=== PATIENT | male | born 1995 | race Caucasian/White ===

== ENCOUNTER 2017-01-27 14:58 | Inpatient (IN) | payer BC, OTHER ==
[~2017-01-27] VITALS: Ht 177.8 cm; Wt 70.3 kg
[2017-01-27] MEDS ORDERED: HYDROXYZINE PAMOATE 25 MG CAPSULE PO PRN (21:15)
[2017-01-27] MEDS ORDERED: ONDANSETRON 4 MG/2 ML VIAL IM PRN (21:15)
[2017-01-27] MEDS ORDERED: ACETAMINOPHEN 325 MG TABLET PO PRN (21:15)
[2017-01-27] MEDS ORDERED: MAG HYDROX/AL HYDROX/SIMETH 30 ML LIQUID UDC PO PRN (21:15)
[2017-01-27] MEDS ORDERED: ONDANSETRON ODT 4 MG TAB.RAPDIS SL PRN (21:15)
[2017-01-27] MEDS ORDERED: BUPRENORPHINE HCL 2 MG TAB.SUBL SL PRN (21:15)
[2017-01-27] MEDS ORDERED: MAGNESIUM HYDROXIDE 30 ML LIQUID UDC PO PRN (21:15)
[2017-01-27] MEDS ORDERED: LORAZEPAM 1 MG TABLET PO PRN (21:15)
[2017-01-27] MEDS ORDERED: LOPERAMIDE HCL 2 MG CAPSULE PO PRN ×2 (21:15)
[2017-01-27] MEDS ORDERED: DICYCLOMINE HCL 20 MG TABLET PO PRN (21:15)
[2017-01-27] MEDS ORDERED: PROMETHAZINE HCL 25 MG TABLET PO PRN (21:15)
[2017-01-27] MEDS ORDERED: MIRALAX 17 GM POWD.PACK PO PRN (21:15)
[2017-01-27] MEDS ORDERED: CLONIDINE HCL 0.1 MG TABLET PO PRN (21:15)
--- NOTE | 2017-01-27 21:40 | NUR ---
Pre admission note Pt seen in intake office. Pt appears mildly intoxicated but in stable condition. V/S WNL. Policies on medication disposal explained to and understood by patient. Will admit to unit.
--- NOTE | 2017-01-27 21:50 | NUR ---
Admission note Pt is a 21 yo male, A+Ox4, presenting to [facility] for Opiate dependence. Pt has Allergies to PCN and Codeine. Pt is on Full Code status, and on Regular diet. Pt is 5'10" in height and 155 LBS in weight. Pt has medical HX of Spinal fusion T11-L1, and multiple occurrences of broken bilateral wrists. Pt has family HX of Breast cancer from mother(), and Substance and alcohol abuse from Father and Brother. Pt has no primary care provider. Pt has been smoking Heroin for 3 years (6 months currently), has reached a level of 2gm-3gm/daily, and last dose was 1gm on 01-27-17 @1200. Pt has been using cocaine intranasal for 9 years (6 months currently), has reached a level of 0.5gm 3x/week, and last dose was "2 lines" on 01-26-17. Pt is not taking any home medications. Pt has HX of previous Detox/Rehab @ [facility] in [place] from November 2015- June 2016. This was the patients last time sober. Pt has been a cigarette smoker for 9 years and has reached a level of 20/daily. Pt appears mildly intoxicated upon admission but in stable condition. V/S WNL. No s/s of distress noted a this time. Respirations even and unlabored. Will continue to monitor.
[2017-01-27] MEDS: METHOCARBAMOL 750 MG TABLET PO PRN (23:56)
--- NOTE | 2017-01-27 23:56 | NUR ---
PRN Clonidine and Robaxin Pt c/o back pain 7/10 and anxiety. PRN Robaxin and Clonidine given and tolerated well. Will reassess within 1 HR. Will continue to monitor.
[2017-01-28 00:01] VITALS: BP 111/67
[2017-01-28] MEDS ORDERED: METHOCARBAMOL 750 MG TABLET ONE (00:04)
[2017-01-28] MEDS ORDERED: CLONIDINE HCL 0.1 MG TABLET ONE (00:05)
--- NOTE | 2017-01-28 00:45 | NUR ---
PRN Clonidine and Robaxin Reassessment Medications effective. Pt expresses reduction in pain to 3/10 and reduction in anxiety. No s/s of ASE/distress noted at this time. Respirations even and unlabored. Will continue to monitor.
[2017-01-28 01:11] LABS: BASOPHILS # (AUTO) 0.1 K/uL (0.0-8.0); BASOPHILS % (AUTO) 1.2 % (0.0-2.0); EOSINOPHILS # (AUTO) 0.3 K/uL (0.0-0.7); EOSINOPHILS % (AUTO) 2.4 % (0.0-7.0); HEMOGLOBIN 16.3 g/dL (12.5-16.3); LYMPHOCYTES # (AUTO) 4.4 K/uL (20.0-40.0); LYMPHOCYTES % (AUTO) 39.9 % (20.5-51.5); MEAN CORPUSCULAR HEMOGLOBIN 32.3 uug (23.8-33.4); MEAN CORPUSCULAR HGB CONC 36 g/dL (32.5-36.3); MEAN CORPUSCULAR VOLUME 90.9 fL (73.0-96.2); MONOCYTES # (AUTO) 0.8 K/uL (2.0-10.0); MONOCYTES % (AUTO) 6.9 % (0.0-11.0); NEUTROPHILS # (AUTO) 5.5 K/uL (1.8-8.9); NEUTROPHILS % (AUTO) 49.6 % (38.5-71.5); PLATELET COUNT (AUTO) 292 K/uL (152-348); RED BLOOD CELL COUNT(AUTO) 5.05 MIL/uL (4.06-5.63); WHITE BLOOD COUNT (AUTO) 11.1 K/uL (3.6-10.2)
[2017-01-28 01:25] LABS: HEMATOCRIT 45.9 % (36.7-47.1)
[2017-01-28 01:32] LABS: ETHANOL < 3 MG/DL (0-0)
[2017-01-28 01:35] LABS: ALANINE AMINOTRANSFERASE 19 U/L (16-63); ALKALINE PHOSPHATASE 67 U/L (50-136); ASPARTATE AMINOTRANSFERASE 15 U/L (15-37); BILIRUBIN,TOTAL 0.3 mg/dL (0.2-1.0); CARBON DIOXIDE 27 mmol/L (21-32); CHLORIDE 105 mmol/L (98-107); CREATININE 0.9 mg/dL (0.6-1.3); GLUCOSE 107 mg/dL (74-106); MAGNESIUM 1.9 mg/dL (1.8-2.4); POTASSIUM 3.7 mmol/L (3.5-5.1); TOTAL PROTEIN, SERUM 7.5 g/dL (6.4-8.2); UREA NITROGEN, BLOOD 11 mg/dL (7-18)
[2017-01-28 04:15] VITALS: BP 116/71
--- NOTE | 2017-01-28 06:54 | NUR ---
End of shift note Pt is a 21 yo male, A+Ox4, presenting to [facility] for Opiate dependence. Pt has Allergies to PCN and Codeine. Pt is on Full Code status, and on Regular diet. Pt has medical HX of Spinal fusion T11-L1, and multiple occurrences of broken bilateral wrists. Pt is on Fall precautions. Pt is on 5 day Subutex taper to start today. Pt was given PRN Clonidine and Robaxin @2356. Pt slept for a total of 5 HRS. Last COWS: 3 @0400. No s/s of distress noted at this time. Respirations even and unlabored. Will endorse to day shift nurse.
[2017-01-28 08:00] VITALS: BP 115/78
--- NOTE | 2017-01-28 08:00 | NUR ---
START OF SHIFT NOTE 21 year old male admitted last night for Opiate detox for heroin and cocaine use. History of detox and rehab from 11/2015 to 06/2016. . On 5 day Subutex taper. Allergy to PCN and Codiene. Skin intact. History of Spinal fusion T11-L1, multiple bilateral wrist fractures. On Fall precautions. Pharmacy called and asked if pt had allergy to Subutex as pt has allergy to codeine. Pt states he has had Suboxone with no reaction. Pharmacy notified pt report of no reaction to Suboxone. 0720, received report from night RN. Last COW 3. Received prn Robaxin and Clonidine last night. Slept 5 hours. Pt to receive TB skin test this am. 0750, pt requesting to smoke. Vitals stable. States back pain. Will medicate with PRN medication for pain as ordered. Bed in low position, side rails up x 2, call velez within reach. Will continue to monitor.
[2017-01-28] MEDS: METHOCARBAMOL 750 MG TABLET PO PRN ×2 (08:56→21:02)
[2017-01-28] MEDS: IBUPROFEN 600 MG TABLET PO PRN ×2 (08:57→21:02)
[2017-01-28] MEDS: BUPRENORPHINE HCL 2 MG TAB.SUBL SL SCH ×4 (08:57→20:47)
--- NOTE | 2017-01-28 08:57 | NUR ---
PRN MEDICATION ADMINISTRATION Pt reports back pain 7/10 in area of back where he had a T11-L1 fusion. Given Motrin and Robaxin. Will reassess for effectiveness.
[2017-01-28] MEDS ORDERED: TUBERCULIN,PURIF.PROT.DERIV. 5 TU/0.1 ML TEST ID ONE (09:00)
--- NOTE | 2017-01-28 09:57 | NUR ---
PRN MEDICATION REASSESSMENT Pt reports back pain decreased to 4/10.
[2017-01-28 11:12] LABS: *AMPHETAMINE, URINE NEGATIVE (NEGATIVE); *BARBITURATE, URINE NEGATIVE (NEGATIVE); *CANNABINOID, URINE POSITIVE (NEGATIVE); *COCCAINE, URINE POSITIVE (NEGATIVE); *OPIATE, URINE POSITIVE (NEGATIVE); *PHENCYCLIDINE SCREEN,URINE NEGATIVE (NEGATIVE)
[2017-01-28] MEDS ORDERED: KETOROLAC TROMETHAMINE 30 MG INJ IM PRN (11:30)
[2017-01-28 12:00] VITALS: BP 101/55
[2017-01-28] MEDS ORDERED: GABAPENTIN 300 MG CAPSULE PO ONE (13:00)
[2017-01-28] MEDS: LIDOCAINE 5% PATCH TD SCH (13:17)
--- NOTE | 2017-01-28 15:02 | NUR ---
Therapist prompted client about group times. Client stated he will start attending groups tomorrow if he is feeling better.
[2017-01-28 17:00] VITALS: BP 98/54
--- NOTE | 2017-01-28 19:19 | NUR ---
END OF SHIFT NOTE 21 year old male admitted last night for Opiate detox for heroin and cocaine use. History of detox and rehab from 11/2015 to 06/2016. . On 5 day Subutex taper. Allergy to PCN and Codiene. Skin intact. History of Spinal fusion T11-L1, multiple bilateral wrist fractures. On Fall precautions. Pharmacy called and asked if pt had allergy to Subutex as pt has allergy to codeine. Pt states he has had Suboxone with no reaction. Pharmacy notified pt report of no reaction to Suboxone. At 0857 given motrin and robaxin for back pain. 0957, pt reported decrease in back pain. TB skin test administered. Last COWS 5 at 0800, 1200 and at 1600. Eating 100 percent of meals. Fluid intake 2538 ml. Void x 23, stool x 1. Report given to night RN. Bed in low position and locked, side rails up x 2, call velez within reach.
--- NOTE | 2017-01-28 19:20 | NUR ---
End of shift note Received report from day shift nurse. Pt is a 21 yo male, A+Ox4, presenting to [facility] for Opiate dependence. Pt has Allergies to PCN and Codeine. Pt is on Full Code status, and on Regular diet. Pt has medical HX of Spinal fusion T11-L1, and multiple occurrences of broken bilateral wrists. Pt is on Fall precautions. Pt is on 5 day Subutex taper, tolerated well. No s/s of distress noted at this time. Respirations even and unlabored. Will continue to monitor. Addendum: 01/28/17 at 2310 by DAYSI TAVERAS LVN Error
--- NOTE | 2017-01-28 19:21 | NUR ---
Start of shift note Received report from day shift nurse. Pt is a 21 yo male, A+Ox4, presenting to [facility] for Opiate dependence. Pt has Allergies to PCN and Codeine. Pt is on Full Code status, and on Regular diet. Pt has medical HX of Spinal fusion T11-L1, and multiple occurrences of broken bilateral wrists. Pt is on Fall precautions. Pt is on 5 day Subutex taper, tolerated well. No s/s of distress noted at this time. Respirations even and unlabored. Will continue to monitor.
[2017-01-28 20:16] VITALS: BP 130/83
[2017-01-28] MEDS: GABAPENTIN 300 MG CAPSULE PO SCH (20:46)
--- NOTE | 2017-01-28 21:02 | NUR ---
PRN Motrin and Robaxin Pt c/o back pain 10/26 and requested for PRN Motrin and Robaxin. Medications given and tolerated well. Will reassess within 1 HR. Will continue to monitor.
--- NOTE | 2017-01-28 22:00 | NUR ---
PRN Motrin and Robaxin Reassessment Medications effective patient expresses reduction in pain to 4/10. No s/s of ASE/distress noted at this time. Respirations even and unlabored. Will continue to monitor.
[2017-01-28] MEDS: diphenhydrAMINE 50 MG CAPSULE PO PRN (23:27)
--- NOTE | 2017-01-28 23:37 | NUR ---
PRN Benadryl Pt c/o inability to sleep and requested for PRN Benadryl. Medication given and tolerated well. Will reassess within 1 HR. Will continue to monitor.
[2017-01-29 00:16] VITALS: BP 124/79
--- NOTE | 2017-01-29 00:37 | NUR ---
PRN Benadryl Reassessment Medication effective. Pt is resting well in bed. No s/s of ASE/distress noted at this time. Respirations even and unlabored. Will continue to monitor.
[2017-01-29 04:30] VITALS: BP 121/83
[2017-01-29 06:06] LABS: HEPATITIS B SURFACE AG Negative (Negative)
--- NOTE | 2017-01-29 07:00 | NUR ---
End of shift note Pt is a 21 yo male, A+Ox4, presenting to [facility] for Opiate dependence. Pt has Allergies to PCN and Codeine. Pt is on Full Code status, and on Regular diet. Pt has medical HX of Spinal fusion T11-L1, and multiple occurrences of broken bilateral wrists. Pt is on Fall precautions. Pt is on 5 day Subutex taper to start today. Pt was given PRN Motrin and Robaxin @2102 and PRN Benadryl @2337. Pt slept for a total of 6 HRS. Last COWS: 3 @0400. No s/s of distress noted at this time. Respirations even and unlabored. Will endorse to day shift nurse.
[2017-01-29 08:00] VITALS: BP 108/63
--- NOTE | 2017-01-29 08:00 | NUR ---
START OF SHIFT NOTE 21 year old male admitted for Opiate detox for heroin. Also history of cocaine use. History of detox and rehab from 11/2015 to 06/2016. . On 5 day Subutex taper. Allergy to PCN and Codeine. Skin intact. History of Spinal fusion T11-L1, multiple bilateral wrist fractures. On Fall precautions. Received report from night RN. Received Motrin, Robaxin, Benadryl PRN during the night. Slept 6 hours. Last COWS 5. On 0800 patient rounds, pt alert and oriented. Bed in low position and locked, side rails up x 2, call velez within reach. Will continue to monitor.
[2017-01-29] MEDS: LIDOCAINE 5% PATCH TD SCH (09:50)
[2017-01-29] MEDS: BUPRENORPHINE HCL 2 MG TAB.SUBL SL SCH ×3 (09:50→20:52)
[2017-01-29] MEDS: GABAPENTIN 300 MG CAPSULE PO SCH ×3 (09:51→20:52)
[2017-01-29] MEDS: IBUPROFEN 600 MG TABLET PO PRN (11:10)
[2017-01-29] MEDS: METHOCARBAMOL 750 MG TABLET PO PRN ×2 (11:10→23:40)
--- NOTE | 2017-01-29 11:10 | NUR ---
PRN MEDICATION ADMINISTRATION Pt reports back pain 10/26. Given Motrin and Robaxin. Will reassess.
--- NOTE | 2017-01-29 12:10 | NUR ---
PRN MEDICATION REASSESSMENT Pt reports decrease in back pain to 4/10 after Motrin and Robaxin.
[2017-01-29 12:30] VITALS: BP 115/70
--- NOTE | 2017-01-29 14:00 | NUR ---
Therapist prompted client to attend group today and process his feelings with others rather than isolating in his room. Client agreed to attend group.
[2017-01-29] MEDS: BACLOFEN 10 MG TABLET PO SCH ×2 (14:13→20:52)
[2017-01-29] MEDS ORDERED: NAPROXEN 500 MG TABLET PO ONE (15:00)
[2017-01-29 16:30] VITALS: BP 104/55
--- NOTE | 2017-01-29 18:56 | NUR ---
END OF SHIFT NOTE 21 year old male admitted for Opiate detox for heroin. Also history of cocaine use. History of detox and rehab from 11/2015 to 06/2016. . On 5 day Subutex taper. Allergy to PCN and Codeine. Skin intact. History of Spinal fusion T11-L1, multiple bilateral wrist fractures. On Fall precautions. Given Motrin and Robaxin at 1110 for back pain with pt reported decrease in pain level one hour later. Tolerating Subutex taper with COWS 3 at 0800,; 4 at 1200; 2 at 1700. Eating 100 percent of all meals, intake 1800 ml, void x 3. Report given to night RN. Bed in low position and locked, side rails up x 2, call light within reach. Will continue to monitor.
--- NOTE | 2017-01-29 19:10 | NUR ---
Start of shift note Received report from day shift nurse. Pt is a 21 yo male, A+Ox4, presenting to [facility] for Opiate dependence. Pt has Allergies to PCN and Codeine. Pt is on Full Code status, and on Regular diet. Pt has medical HX of Spinal fusion T11-L1, and multiple occurrences of broken bilateral wrists. Pt is on Fall precautions. Pt is on 5 day Subutex taper, tolerated well. No s/s of distress noted at this time. Respirations even and unlabored. Will continue to monitor.
[2017-01-29 20:11] VITALS: BP 136/82
[2017-01-29] MEDS: NAPROXEN 500 MG TABLET PO SCH (20:51)
--- NOTE | 2017-01-29 20:54 | NUR ---
PRN Toradol Pt c/o lower back pain 11/26 and requested for PRN Toradol. Medication given and tolerated well. Will reassess within 1 HR. Will continue to monitor.
--- NOTE | 2017-01-29 21:50 | NUR ---
PRN Toradol Reassessment Medication effective. Pt's pain reduced to 5/10. No s/s of ASE/distress noted at this time. Respirations even and unlabored. Will continue to monitor.
[2017-01-29] MEDS: diphenhydrAMINE 50 MG CAPSULE PO PRN (23:40)
--- NOTE | 2017-01-29 23:40 | NUR ---
PRN Robaxin and Benadryl Pt c/o muscle spasms and inability to sleep and requested for PRN Robaxin and Benadryl. Medications given and tolerated well. Will reassess within 1 HR. Will continue to monitor.
[2017-01-30 00:18] VITALS: BP 128/81
--- NOTE | 2017-01-30 00:35 | NUR ---
PRN Robaxin and Benadryl Reassessment Medications effective. Pt is resting well in bed. No s/s of ASE/distress noted at this time. Respirations even and unlabored. Will continue to monitor.
[2017-01-30 04:21] VITALS: BP 124/77
--- NOTE | 2017-01-30 07:00 | NUR ---
End of shift note Pt is a 21 yo male, A+Ox4, presenting to [facility] for Opiate dependence. Pt has Allergies to PCN and Codeine. Pt is on Full Code status, and on Regular diet. Pt has medical HX of Spinal fusion T11-L1, and multiple occurrences of broken bilateral wrists. Pt is on Fall precautions. Pt is on 5 day Subutex taper to start today. Pt was given PRN Toradol @2053 and PRN Robaxin and Benadryl @2339. Pt slept for a total of 5 HRS. Last COWS: 3 @0400. No s/s of distress noted at this time. Respirations even and unlabored. Will endorse to day shift nurse.
--- NOTE | 2017-01-30 07:10 | NUR ---
Start of shift note SBAR report rcv'd. Pt was admitted for opiate dependence and cocaine abuse. Pt has an allergy to PCN and codeine. Pt is a full code and on a regular diet. Pt has a PMHx of a spinal fusion with chronic pain and multiple bruises to bilateral wrists. Pt is on day 3 of a 5 day subutex taper. Pt is currently resting in bed. Pt has no complaints at this time. Will continue to monitor pt.
[2017-01-30 08:00] VITALS: BP 118/73
[2017-01-30] MEDS: LIDOCAINE 5% PATCH TD SCH (08:45)
[2017-01-30] MEDS: BACLOFEN 10 MG TABLET PO SCH (08:45)
[2017-01-30] MEDS: FAMOTIDINE 20 MG TABLET PO SCH (08:45)
[2017-01-30] MEDS: GABAPENTIN 300 MG CAPSULE PO SCH (08:45)
[2017-01-30] MEDS: NAPROXEN 500 MG TABLET PO SCH ×2 (08:45→20:43)
[2017-01-30] MEDS ORDERED: BUPRENORPHINE HCL 2 MG TAB.SUBL SL SCH ×2 (09:00→15:00)
[2017-01-30 12:00] VITALS: BP 127/73
[2017-01-30] MEDS: BUPRENORPHINE HCL 2 MG TAB.SUBL SL SCH ×3 (12:08→20:44)
--- NOTE | 2017-01-30 12:45 | NUR ---
therapist prompted client to attend today's groups. Client agreed to attend.
[2017-01-30] MEDS: ACETAMINOPHEN 325 MG TABLET PO SCH ×2 (14:43→20:44)
[2017-01-30] MEDS: GABAPENTIN 400 MG CAPSULE PO SCH ×2 (14:43→20:43)
[2017-01-30] MEDS: BACLOFEN 20 MG TABLET PO SCH ×2 (14:44→20:43)
[2017-01-30 16:00] VITALS: BP 123/77
--- NOTE | 2017-01-30 18:52 | NUR ---
End of shift note Pt was admitted for opiate dependence and cocaine abuse. Pt is a full code and on a regular diet. Pt has an allergy to PCN and codeine. Pt has a PMHx of a spinal fusion with chronic pain and multiple bruises to bilateral wrists. Pt is on day 3 of a 5 day subutex taper, and during the shift Dr Padilla adjusted the taper d/t his s/s of withdrawal. Pt was started on baclofen and Tylenol to manage his chronic pain and states that he is comfortable. Pt has no complaints at this time. Pt had a COWS of 5 at 1600. All needs addressed at this time. Will endorse SBAR to oncoming nurse.
[2017-01-30 20:00] VITALS: BP 141/85
--- NOTE | 2017-01-30 20:00 | NUR ---
Start of Shift Pt is a 21 year old male admitted for Opiate dependence, placed on 5 day Subutex taper. Pt reported using Heroin 2-3g/daily and Cocaine 0.5g 3x/weekly. Pt is allergic to PCN and Codeine, fall precautions, regular diet and full code. PMH: Spinal fusions with multiple bilateral wrist fx. Upon assessment, pt presents with anxiety, reports muscle aches, lower back pain, tremors felt upon touch, skin is clammy/flushed, respirations even/unlabored, denies SOB/chest pain, denies n/v/d, medications due. Safety measures in place, call light within reach, side rails up x2, bed locked and in low position. Will continue to monitor.
[2017-01-30] MEDS: CLONIDINE HCL 0.1 MG TABLET PO SCH (20:44)
[2017-01-30] MEDS: diphenhydrAMINE 50 MG CAPSULE PO PRN (22:59)
--- NOTE | 2017-01-30 22:59 | NUR ---
PRN Administration Pt requests aid for sleep. Benadryl 50mg PRN administered. Safety measures in place. Will continue to monitor.
--- NOTE | 2017-01-30 23:59 | NUR ---
PRN Reassessment Upon reassessment, pt is in bed within eyes closed, respirations even/unlabored. Safety measures in place. Will continue to monitor.
[2017-01-31] VITALS (7 sets, daily range): BP systolic 100–127; BP diastolic 62–87
[2017-01-31] MEDS: METHOCARBAMOL 750 MG TABLET PO PRN (01:15)
--- NOTE | 2017-01-31 01:15 | NUR ---
PRN Administration Pt reports muscle/body aches rated 5-6/10. Robaxin 750mg PRN administered. Safety measures in place. Will continue to monitor.
--- NOTE | 2017-01-31 02:15 | NUR ---
PRN Reassessment Upon reassessment of Robaxin, pt is in bed, resting with eyes closed, respirations even/unlabored. Safety measures in place. Will continue to monitor.
--- NOTE | 2017-01-31 04:00 | NUR ---
Vital Signs/COWS deferred BP 125/87, pulse 79, resp 16, Spo2 99% room air, temp 97.9, no pain COWS deferred due to pt sleeping, to assess while pt is awake as ordered. Safety measures in place. Will continue to monitor.
--- NOTE | 2017-01-31 07:00 | NUR ---
End of Shift Pt is a 21 year old male admitted for Opiate dependence, placed on 5 day Subutex taper. Pt reported using Heroin 2-3g/daily and Cocaine 0.5g 3x/weekly. Pt is allergic to PCN and Codeine, fall precautions, regular diet and full code. PMH: Spinal fusions with multiple bilateral wrist fx. During shift, pt presented with anxiety, reports muscle aches, lower back pain, tremors felt upon touch, skin is clammy/flushed scheduled taper medications administered, COWS 5. Benadryl 50mg PRN administered for sleep, effective. Robaxin 750mg PRN administered for muscle aches. Pt slept for 5 hours, intake of 855ml PO, voids x3 and stool x0. Safety measures in place, call light within reach, side rails up x2, bed locked and in low position. Endorsed to day shift nurse.
--- NOTE | 2017-01-31 07:10 | NUR ---
Start of shift note SBAR report rcvd'. Pt was admitted for opiate dependence and cocaine abuse. Pt has an allergy to PCN and codeine. Pt is a full code and on a regular diet. Pt has a PMHx of a spinal fusion with chronic pain and multiple bruises to bilateral wrists. Pt is on day 4 of a custom subutex taper. Pt is currently sleeping in bed, pt has no complaints at this time. Will continue to monitor pt. All needs addressed.
[2017-01-31] MEDS: CLONIDINE HCL 0.1 MG TABLET PO SCH ×3 (09:00→20:49)
--- NOTE | 2017-01-31 09:00 | NUR ---
Clonidine held Pt clonidine held per MD order for BP of 100/62 after recheck, initial BP of 95/47. Will continue to monitor pt.
[2017-01-31] MEDS: NAPROXEN 500 MG TABLET PO SCH ×2 (09:13→20:49)
[2017-01-31] MEDS: ACETAMINOPHEN 325 MG TABLET PO SCH (09:13)
[2017-01-31] MEDS: LIDOCAINE 5% PATCH TD SCH (09:13)
[2017-01-31] MEDS: BACLOFEN 20 MG TABLET PO SCH ×4 (09:13→20:49)
[2017-01-31] MEDS: BUPRENORPHINE HCL 2 MG TAB.SUBL SL SCH ×3 (09:13→20:54)
[2017-01-31] MEDS: FAMOTIDINE 20 MG TABLET PO SCH (09:13)
[2017-01-31] MEDS: GABAPENTIN 400 MG CAPSULE PO SCH (09:13)
--- NOTE | 2017-01-31 12:00 | NUR ---
MD communication Pt report pain level of 12/27. Notified Dr Padilla, Dr Padilla to place orders. Aware that pt had last dose of naproxen at 0915.
[2017-01-31] MEDS ORDERED: KETOROLAC TROMETHAMINE 60 MG INJ IM ONE (12:15)
--- NOTE | 2017-01-31 13:11 | NUR ---
Reassessment Pt states that his pain level is 4/10 and that he is comfortable and that the toradol injection was effective .
[2017-01-31] MEDS: GABAPENTIN 300 MG CAPSULE PO SCH ×2 (14:05→20:49)
[2017-01-31] MEDS: ACETAMINOPHEN ES 500 MG TABLET PO SCH ×2 (14:05→20:48)
--- NOTE | 2017-01-31 19:03 | NUR ---
End of shift note Pt was admitted for opiate dependence and cocaine abuse. Pt has an allergy to PCN and codeine. Pt is a full code and on a regular diet. Pt has a PMHx of a spinal fusion with chronic pain and multiple bruises to bilateral wrists. Pt is on day 4 of a custom subutex taper and tolerating well. Pt had an episode of extreme pain and had a one time order of toradol IM and Dr Padilla had to increase his baclofen to QID instead of TID. Pt states that the medication was effective. Pt took a sufficient nap after administration of the medication and states that he is feeling better at this time. Pt had a COWS of 6 at 1600. Will endorse SBAR to oncoming nurse.
--- NOTE | 2017-01-31 20:00 | NUR ---
Start of Shift Pt is a 21 year old male admitted for Opiate dependence, placed Subutex taper. Pt reported using Heroin 2-3g/daily and Cocaine 0.5g 3x/weekly. Pt is allergic to PCN and Codeine, fall precautions, regular diet and full code. PMH: Spinal fusions with multiple bilateral wrist fx. Upon assessment, pt reports feeling fatigue, muscle aches with lower back pain, skin is clammy/flushed, respirations even/unlabored, denies SOB/chest pain, denies n/v/d, medications due. Safety measures in place, call light within reach, side rails up x2, bed locked and in low position. Will continue to monitor.
[2017-02-01] VITALS: BP 113/82
--- NOTE | 2017-02-01 | NUR ---
Vital Signs/COWS deferred BP 113/82, pulse 70, resp 17, Spo2 99% room air, temp 98, no pain COWS deferred due to pt sleeping, to assess while pt is awake as ordered. Safety measures in place. Will continue to monitor.
[2017-02-01 04:00] VITALS: BP 124/81
--- NOTE | 2017-02-01 04:00 | NUR ---
Vital Signs/COWS deferred BP 124/81, pulse 66, resp 17, Spo2 100% room air, temp 97.9, no pain COWS deferred due to pt sleeping, to assess while pt is awake as ordered. Safety measures in place. Will continue to monitor.
--- NOTE | 2017-02-01 07:00 | NUR ---
End of Shift Pt is a 21 year old male admitted for Opiate dependence, placed on 5 day Subutex taper. Pt reported using Heroin 2-3g/daily and Cocaine 0.5g 3x/weekly. Pt is allergic to PCN and Codeine, fall precautions, regular diet and full code. PMH: Spinal fusions with multiple bilateral wrist fx. During shift, pt reported feeling fatigue, muscle aches with lower back pain, skin is clammy/flushed scheduled taper medications administered, effective in management of s/s of withdrawal as reported by pt, COWS 5. No PRN medications administered. Pt slept for 6 hours, intake of 1800 ml PO, voids x4 and stool x0. Pt is scheduled for discharge today.Safety measures in place, call light within reach, side rails up x2, bed locked and in low position. Endorsed to day shift nurse.
--- NOTE | 2017-02-01 07:37 | NUR ---
START OF SHIFT Received report from night nurse. 21 year old male patient admitted on 01/27/17 for Heroine and Codeine withdrawals. Pt is placed on a 5 day Subutex taper and is tolerating well. Most recent COWS is 5. No PRN medications needed or administered at night. V/S remain WNL throughout shift. Pt slept for 6 hours. Pt remains compliant with ordered medications. All needs met at this time. Will continue to monitor.
[2017-02-01 08:09] VITALS: BP 114/66
[2017-02-01] MEDS ORDERED: BUPRENORPHINE HCL 2 MG TAB.SUBL SL SCH (09:00)
[2017-02-01] MEDS: GABAPENTIN 300 MG CAPSULE PO SCH (09:14)
[2017-02-01] MEDS: CLONIDINE HCL 0.1 MG TABLET PO SCH ×3 (09:14→21:37)
[2017-02-01] MEDS: NAPROXEN 500 MG TABLET PO SCH ×2 (09:14→20:28)
[2017-02-01] MEDS: ACETAMINOPHEN ES 500 MG TABLET PO SCH ×3 (09:15→20:27)
[2017-02-01] MEDS: LIDOCAINE 5% PATCH TD SCH (09:15)
[2017-02-01] MEDS: BACLOFEN 20 MG TABLET PO SCH ×4 (09:15→20:28)
[2017-02-01] MEDS: FAMOTIDINE 20 MG TABLET PO SCH (09:15)
[2017-02-01] MEDS ORDERED: KETOROLAC TROMETHAMINE 30 MG INJ IM PRN (11:30)
[2017-02-01 12:25] VITALS: BP 114/74
[2017-02-01] MEDS: KETOROLAC TROMETHAMINE 30 MG INJ IM PRN (12:43)
--- NOTE | 2017-02-01 12:43 | NUR ---
PRN TORADOL Pt c/o 11/26 upper/medial/lower back pain that he describes as aching and sharp. PRN Toradol 60mg administered as ordered. Will reassess.
--- NOTE | 2017-02-01 13:13 | NUR ---
REASSESSMENT Toradol 60mg IM was effective, pt states pain decreased to 3/10 and is tolerable. ice/heat packed offered.
[2017-02-01] MEDS: GABAPENTIN 400 MG CAPSULE PO SCH ×2 (15:17→20:28)
[2017-02-01] MEDS ORDERED: NAPR500T3 PO (15:45)
[2017-02-01] MEDS ORDERED: CLON0.1T14 PO (15:45)
[2017-02-01] MEDS ORDERED: ACET-2605 PO (15:45)
[2017-02-01] MEDS ORDERED: BACL20TA PO (15:45)
[2017-02-01] MEDS ORDERED: FAMO20TA8 PO (15:45)
[2017-02-01] MEDS ORDERED: GABA-536 PO (15:45)
[2017-02-01] MEDS ORDERED: HYDR-3895 PO (15:45)
[2017-02-01] MEDS ORDERED: DICY20TA28 PO (15:45)
[2017-02-01] MEDS ORDERED: LIDO30AD10 TD (15:45)
[2017-02-01] MEDS ORDERED: DIPH50CA37 PO (15:45)
[2017-02-01 16:53] VITALS: BP 107/68
--- NOTE | 2017-02-01 18:53 | NUR ---
END OF SHIFT Endorsed patient to night nurse. Pt remains stable throughout shift. PRN Toradol administered and effective. Most recent COWS at 1700 is 5. Pt attends groups and activities and socializes with peers. Pt education provided on smoking cessation and nonpharmacological methods to increase comfort. Pt is medically cleared for d/c tomorrow and is aware. Safety measures are in place, night nurse to continue monitoring.
[2017-02-01 20:00] VITALS: BP 118/67
--- NOTE | 2017-02-01 20:00 | NUR ---
Start of Shift Pt is a 21 year old male admitted for Opiate dependence, placed Subutex taper completed. Pt reported using Heroin 2-3g/daily and Cocaine 0.5g 3x/weekly. Pt is allergic to PCN and Codeine, fall precautions, regular diet and full code. PMH: Spinal fusions with multiple bilateral wrist fx. Upon assessment, pt reports muscle/joint aches with lower back pain, skin is flushed/clammy, respirations even/unlabored, denies SOB/chest pain, denies n/v/d, medications due. Pt is scheduled for discharge tomorrow. Safety measures in place, call light within reach, side rails up x2, bed locked and in low position. Will continue to monitor.
[2017-02-02] VITALS: BP 119/69
[2017-02-02] MEDS: KETOROLAC TROMETHAMINE 30 MG INJ IM PRN (00:57)
[2017-02-02] MEDS: diphenhydrAMINE 50 MG CAPSULE PO PRN (00:57)
--- NOTE | 2017-02-02 00:57 | NUR ---
PRN Administration Pt reports back pain rated 10/10. Pt is described as radiating, aching and sharp. Toradol 60mg inj PRN administered. Benadryl 50mg PRN administered for sleep. Safety measures in place.
--- NOTE | 2017-02-02 01:57 | NUR ---
PRN Reassessment Upon reassessment, pt is in bed with eyes closed , respirations even/unlabored. Safety measures in place, will continue to monitor.
--- NOTE | 2017-02-02 04:00 | NUR ---
Pt refused to be woken up for 0400 VS COWS deferred due to pt sleeping, to assess while pt is awake as ordered Safety measures in place, will continue to monitor.
--- NOTE | 2017-02-02 07:00 | NUR ---
End of Shift Pt is a 21 year old male admitted for Opiate dependence, placed Subutex taper completed. Pt reported using Heroin 2-3g/daily and Cocaine 0.5g 3x/weekly. Pt is allergic to PCN and Codeine, fall precautions, regular diet and full code. PMH: Spinal fusions with multiple bilateral wrist fx. During shift, pt reported muscle/joint aches with lower back pain, skin is flushed/clammy scheduled medications administered, COWS 3. Toradol inj PRN and Benadryl PRN administered, effective. Pt slept for 5 hours, intake of 2020 ml PO, voids x3 and stool x1. Pt is scheduled for discharge today. Safety measures in place, call light within reach, side rails up x2, bed locked and in low position. Endorsed to day shift nurse.
--- NOTE | 2017-02-02 07:49 | NUR ---
START OF SHIFT Received report from night nurse. 21 year old male admitted on 01/27/17 for opiate and cocaine withdrawals. Pt is medically cleared for discharge with no acute s/s of withdrawals noted. PRN Benadryl and Toradol were administered and effective. Most recent COWS 3. Pt slept for 4 hours. Pt is sleeping in bed at this time, RR even and unlabored. Safety measures in place, will continue to monitor.
[2017-02-02 08:06] VITALS: BP 106/79
[2017-02-02 09:04] VITALS: BP 107/68
[2017-02-02] MEDS: BACLOFEN 20 MG TABLET PO SCH (09:04)
[2017-02-02] MEDS: GABAPENTIN 400 MG CAPSULE PO SCH (09:04)
[2017-02-02] MEDS: NAPROXEN 500 MG TABLET PO SCH (09:04)
[2017-02-02] MEDS: CLONIDINE HCL 0.1 MG TABLET PO SCH (09:04)
[2017-02-02] MEDS: FAMOTIDINE 20 MG TABLET PO SCH (09:04)
[2017-02-02] MEDS: ACETAMINOPHEN ES 500 MG TABLET PO SCH (09:04)
[2017-02-02] MEDS: LIDOCAINE 5% PATCH TD SCH (09:06)
--- NOTE | 2017-02-02 09:30 | NUR ---
D/C NOTE Pt is A/O x4. V/S remain WNL. Pt denies SI/HI or hallucinations. Pt shows no s/s of acute withdrawal at this time, and is stable. has medically cleared pt for d/c . Education on Hepatitis C, smoking cessation and medication side effects provided. Pt verbalizes understanding. All pt belongings are in belonging bag, including prescriptions, pt did not have any home medications. Refuses FLU/PNU vaccination. Pt is being accompanied by [employer] CL[employer] at this time to be transported to rehab. All needs met.
== END 2017-02-02 09:30 | disposition other institution (70) | DRG 895 ==
LOC: SRC 21:00
PROVIDERS: ADMIT Internal Medicine; ATTEND Internal Medicine
PROC: HZ2ZZZZ Detoxification Services for Substance Abuse Treatment (ICD-10-PCS; principal; 2017-01-27)
PROC: HZ31ZZZ Individual Counseling for Substance Abuse Treatment, Behavioral (ICD-10-PCS; 2017-01-29)
PROC: HZ41ZZZ Group Counseling for Substance Abuse Treatment, Behavioral (ICD-10-PCS; 2017-01-30)
DX: F11.23 Opioid dependence with withdrawal (principal); F14.20 Cocaine dependence, uncomplicated; F17.210 Nicotine dependence, cigarettes, uncomplicated; Z80.3 Family history of malignant neoplasm of breast; Z81.1 Family history of alcohol abuse and dependence; Z91.89 Other specified personal risk factors, not elsewhere classified; Z59.1 Inadequate housing; G89.29 Other chronic pain; M54.6 Pain in thoracic spine; D72.823 Leukemoid reaction; Z98.1 Arthrodesis status
CPT/HCPCS: 36415; 70030-TC; 80307; 80349; 80353; 80361; 83735; 85025; 86580; 86592; 86705; 86803; 87340; 87806; A4663; G0480; J1885; Q0163